=== PATIENT | male | born 1965 | race Caucasian/White ===

== ENCOUNTER 2023-09-13 10:15 | Day surgery (SDC) | payer BC ==
[~2023-09-13] VITALS: Ht 177.8 cm; Wt 76.5 kg
[~2023-09-13 10:15] MED LIST: Lactated Ringer's 1,000 ML IV ONE; propofoL 50 ML IV ONE
[2023-09-13] MEDS ORDERED: OTEZLA30 MG (11:13)
[2023-09-13] MEDS ORDERED: Lactated Ringer's 1,000 ML IV ONE (11:46)
[2023-09-13] MEDS ORDERED: Glycopyrrolate 0.2 MG/ML 1MLVIAL ONE (12:35)
[2023-09-13] MEDS ORDERED: ePHEDrine Sulfate 50 MG/ML 1ML Injection ONE (12:35)
--- NOTE | 2023-09-13 13:57 | NUR ---
09/13/23 1710 Luz Solano WHEN ASKED PT. IF HE HAD ANY PAIN, PT. VERBALIZES HAVING PRESSURE IN HIS LOWER ABD. PT. STATES "NO BIG DEAL." WHEN ASKED PT. TO RATE HIS PRESSURE, PT. STATED "IT'S GREAT." INSTRUCTED PT. IT MAY BE SOME GAS & TO PASS IT OUT IF FELT THE NEED. PT. STATED "I"LL SAVE IT FOR MY ." PT. ALSO INSTRUCTED THAT HE ALSO HAD A CLIP IN HIS COLON TO HELP WITH PREVENTING BLEEDING AFTER POLYP REMOVAL & IT WOULD JUST FALL OFF ON IT'S OWN & HE MAY NEVER SEE IT.
== END 2023-09-13 13:20 | disposition home or self-care (01) ==
LOC: ORSCSDS 10:15
PROVIDERS: Internal Medicine Gastroenterology
PROC: 0DBL8ZX Excision of Transverse Colon, Via Natural or Artificial Opening Endoscopic, Diagnostic (ICD-10-PCS; principal; 2023-09-13 11:45)
PROC: 0DBH8ZX Excision of Cecum, Via Natural or Artificial Opening Endoscopic, Diagnostic (ICD-10-PCS; principal; 2023-09-13 11:45)
PROC: 0DBN8ZX Excision of Sigmoid Colon, Via Natural or Artificial Opening Endoscopic, Diagnostic (ICD-10-PCS; principal; 2023-09-13 11:45)
DX: Z12.11 Encounter for screening for malignant neoplasm of colon (principal); Z86.010 Personal history of colon polyps; D12.5 Benign neoplasm of sigmoid colon; D12.0 Benign neoplasm of cecum; D12.3 Benign neoplasm of transverse colon
CPT/HCPCS: 88305; J2704; J7120